=== PATIENT | male | born 1945 | race Caucasian/White ===

== ENCOUNTER 2019-02-02 12:55 | Inpatient (IN) ==
--- NOTE | 2019-02-02 13:11 | Emergency Department Note ---
Disposition Clinical Impression: Acute exacerbation of chronic obstructive airways disease, Hypoxia Aspiration pneumonia Qualifiers: Aspiration pneumonia type: unspecified Laterality: bilateral Lung location: lower lobe of lung Qualified Code(s): J69.0 - Pneumonitis due to inhalation of food and vomit Disposition: Admitted As Inpatient Condition: Fair Referrals: NONE,PCP [Primary Care Provider] - Forms: ED Satisfaction Letter Time of Disposition: 17:35 SOB HPI - General Chief Complaint: ED Shortness of Breath/Dyspnea Stated Complaint: SOB Time Seen by Provider: 02/02/19 13:00 Source: patient, EMS Mode of arrival: EMS Limitations: no limitations Nursing Notes Reviewed: Yes Vital Signs Reviewed: Yes - History of Present Illness Patient presents to the ED via EMS with complaint of shortness of breath. He states it started yesterday. He reports a slight cough that is productive of white phlegm. He denies any chest pain. No nasal congestion, rhinorrhea, sneezing or sore throat. No leg swelling. No PND or orthopnea. No abdominal pain, nausea, vomiting, diarrhea or constipation. No fever or chills. He was given a DuoNeb by EMS which she states helped somewhat. He has a history of COPD but states he is not on any type of inhalers. History is also notable for tongue cancer for which she has had a radical neck dissection and now has a PEG tube and takes nothing by mouth. He has high cholesterol and hypothyroidism but no history of CHF or CAD. He is an ex-smoker who quit 25 years ago after [facility] for approximately 20 years. - Related Data Home Medications Medication Instructions Recorded Confirmed Atenolol [Tenormin] 25 mg GTUBE DAILY 03/09/18 02/02/19 Oxycodone HCl [Oxycontin] 10 mg GTUBE BID 03/09/18 02/02/19 Aspirin 81 mg GTUBE DAILY 09/30/18 02/02/19 Docusate [Colace] 100 mg GTUBE DAILY 09/30/18 02/02/19 Rosuvastatin [Crestor] 20 mg GTUBE HS 09/30/18 02/02/19 Previous Rx's Medication Instructions Recorded Levothyroxine [Synthroid] 125 mcg GTUBE DAILY@0630 #30 tablet 10/02/18 Phenytoin Oral Susp [Dilantin Susp] 100 mg GTUBE Q8H #90 udc 10/02/18 Allergies Allergy/AdvReac Type Severity Reaction Status Date / Time No Known Allergies Allergy Verified 06/28/18 12:46 Constitutional: Denies: fever, chills, weakness, weight change Eyes: Denies: eye pain, eye discharge, vision change ENT ED: Denies: ear pain, throat pain, dental pain, hearing loss, epistaxis, congestion, dysphagia Cardiovascular: Denies: chest pain, palpitations, dyspnea on exertion, edema, s yncope Respiratory: Reports: as per HPI, cough, dyspnea, sputum production. Denies: wheezes, hemoptysis, stridor Gastrointestinal: Denies: abdominal pain, nausea, vomiting, diarrhea, constipation, hematemesis, melena, hematochezia Genitourinary: Denies: urgency, dysuria, frequency, hematuria Musculoskeletal: Denies: back pain, neck pain, arthralgia, myalgia Integumentary: Denies: rash, abrasion, lesions Neurological: Denies: headache, weakness, numbness, paresthesias, confusion, abnormal gait, vertigo Psychiatric: Denies: anxiety, depression, suicidal thoughts, homicidal thoughts, auditory hallucinations, visual hallucinations Endocrine: Denies: fatigue Hematological/Lymphatic: Denies: easy bleeding, easy bruising Allergic/Immunologic: Denies: facial swelling, urticaria Past Medical History - Past Medical History Medical history: Reports: cancer, COPD, CVA, hyperlipidemia, hypertension, seizures, thyroid disease, other Surgical history: Reports: appendectomy, cancer surgery, herniorrhaphy, tracheostomy Psychiatric history: Reports: no psych history - Social History Smoking Status: Former smoker Smokeless Tobacco Status: No Alcohol use: Reports: none Drug use: Reports: marijuana Physical Exam - General Limitations: no limitations General appearance: alert, in no apparent distress, other (thin, frail) - Head Head exam: atraumatic, normocephalic, normal inspection - Eye Eye exam: Present: normal appearance, PERRL, EOMI - ENT ENT exam: normal exam, normal oropharynx, mucous membranes moist - Neck Neck exam: Present: full ROM, trachea midline - Chest Chest inspection: Present: normal inspection, symmetric chest wall rise - Expanded Respiratory Exam Location: rhonchi: Left, Right, Upper, Lower (scattered) - Cardiovascular Cardiovascular exam: Present: regular rate, normal rhythm, normal heart sounds - Abdominal Exam Abdominal exam: Present: soft, Non-Tender, other (PEG LUQ, site clean and dry). Absent: tenderness, distention, guarding, rebound, rigidity - Extremities Exam Extremities exam: Present: normal inspection, full ROM. Absent: tenderness, pedal edema - Neurological Exam Neurological exam: Present: alert, oriented X3 - Psychiatric Psychiatric exam: Present: normal affect, normal mood - Skin Skin exam: Present: warm, dry, intact, normal color Course Course Narrative: His presents to the ED with 2 days of shortness of breath as well as a slight cough with white phlegm. No other associated cardiac or respiratory symptoms. On arrival he is afebrile, hematuria stable and nontoxic in appearance with oxygen saturations of 93-96% on room air. He has some scattered rhonchi on exam. Will obtain chest x-ray and lab work to evaluate further for pneumonia or less likely cardiovascular causes for his breathing which I feel is more likely a simple COPD exacerbation. - Reevaluation(s) Reevaluation #1: Chest x-ray shows only evidence of COPD and surgical changes. No pulmonary edema or pneumonia. We will give a second DuoNeb and a dose of steroids. Laboratory studies are still pending. Time: 13:40 Reevaluation #2: Laboratory studies show no leukocytosis. Troponin and BNP are normal. D-dimer is elevated at 768. Upon reviewing chart and talking with the patient he has had an elevated d-dimer of over 3000 in the past during hospitalization for aspiration pneumonia and CT scan was performed that showed the possibility of a nonocclusive thrombus. tells me [facility] since then his had a repeat CT scan of his chest and abdomen in late December. They have not heard anything from the [facility] on these results. While it is presumed it did not show a PE at they would have been notified these records are not available and patient now has new symptoms of worsening shortness of breath. His oxygen saturations also did drop into the 80s on room air after his breathing treatments which was surprising given his lung sounds and initial saturations in the 90s on arrival, although that may simply been an improvement due to the nebulizer treatment he received enroute. He is now doing well on just 2 L of oxygen and is feeling better but given his hypoxia he would need admission and further treatment of his COPD exacerbation at a minimum. Discussed with patient the need to repeat a CTA to rule out the possibility of a PE and he is in agreement. Patient also expressed a desire to stay at this facility if possible for hospitalization. Time: 15:34 Reevaluation #3: CT did not show any evidence of PE but did show some filling defects in the lower lobes concerning for aspiration with possibility of underlying pneumonia. Patient has had aspiration pneumonia several times in the past although he curre ntly takes nothing by mouth. Discussed results with patient and the need for antibiotics. Patient is in agreement. Will draw blood cultures and also check a lactate. Have contacted the hospitalist regarding admission for treatment of both the COPD and the potential aspiration pneumonia. Waiting callback at this time. Time: 16:37 Additional Reevaluation(s): 1744 - I spoke to the hospitalist on-call, Dr. Chan, who has agreed to accept the patient. Patient and family have been updated. Vital Signs Temperature 97.5 F L 02/02/19 12:58 Pulse Rate 92 02/02/19 12:58 Respiratory Rate 16 02/02/19 12:58 Blood Pressure 147/84 02/02/19 12:58 O2 Sat by Pulse Oximetry 95 02/02/19 12:58 Temperature 97.5 F L 02/02/19 12:58 Pulse Rate 92 02/02/19 14:48 Respiratory Rate 16 02/02/19 14:48 Blood Pressure 122/65 02/02/19 14:48 O2 Sat by Pulse Oximetry 98 02/02/19 14:48 Oxygen Delivery Oxygen Delivery Nasal Cannula Shortness of Breath/Dyspnea - Differential Diagnosis Likely: acute exacerbation of chronic obstructive airways disease, pneumonia. Unlikely: congestive heart failure, pulmonary embolism - Medical Records Medical records reviewed: Yes I reviewed the patient's medical records. - Lab Data Lab results reviewed: Yes I reviewed the patient's lab results. Result diagrams: 02/02/19 13:28 02/02/19 13:28 Lab Results 02/02/19 02/02/19 02/02/19 Range/Units 13:28 13:28 13:28 WBC 9.1 (4.3-11.1) K/mcL RBC 3.50 L (4.19-5.50) M/mcL Hgb 11.0 L (12.9-16.9) g/dL Hct 33.8 L (37.5-50.1) % MCV 96.6 (83.0-100.0) fL MCH 31.4 (28.0-33.3) pg MCHC 32.5 (31.6-35.5) g/dL RDW 14.7 H (11.5-14.5) % Plt Count 249 (140-400) K/mcL MPV 11.1 (9.4-12.4) fL Immature Gran % 0.3 (0-4) % Seg Neutrophils % 77.7 % Lymphocytes % 7.3 % Monocytes % 11.9 % Eosinophils % 2.4 % Basophils % 0.4 % Neutrophils # 7.0 (1.6-8.9) K/mcL Lymphocytes # 0.7 (0.6-4.6) K/mcL Monocytes # 1.1 (0.0-1.3) K/mcL Eosinophils # 0.2 (0.0-0.6) K/mcL Basophils # 0.0 (0.0-0.2) K/mcL D-Dimer (0-500) ng/mLFEU Sodium 132 L (136-145) mEq/L Potassium 3.9 (3.5-5.1) mEq/L Chloride 99 (98-107) mEq/L Carbon Dioxide 26 (23-29) mEq/L BUN 27 H (8-23) mg/dL Creatinine 0.88 (0.70-1.30) mg/dL Est GFR ( Amer) > 60 (> 60) Est GFR (Non-Af Amer) > 60 (> 60) BUN/Creatinine Ratio 31 H (6-26) Glucose 111 H (70-105) mg/dL Calculated Osmolality 280 (280-300) Lactic Acid (0.5-2.2) mmol/L Calcium 9.1 (8.6-10.3) mg/dL Troponin I <= 0.04 (0-0.04) ng/mL B-Natriuretic Peptide 71 (0-100) pg/mL 02/02/19 02/02/19 Range/Units 14:25 17:07 WBC (4.3-11.1) K/mcL RBC (4.19-5.50) M/mcL Hgb (12.9-16.9) g/dL Hct (37.5-50.1) % MCV (83.0-100.0) fL MCH (28.0-33.3) pg MCHC (31.6-35.5) g/dL RDW (11.5-14.5) % Plt Count (140-400) K/mcL MPV (9.4-12.4) fL Immature Gran % (0-4) % Seg Neutrophils % % Lymphocytes % % Monocytes % % Eosinophils % % Basophils % % Neutrophils # (1.6-8.9) K/mcL Lymphocytes # (0.6-4.6) K/mcL Monocytes # (0.0-1.3) K/mcL Eosinophils # (0.0-0.6) K/mcL Basophils # (0.0-0.2) K/mcL D-Dimer 768 H (0-500) ng/mLFEU Sodium (136-145) mEq/L Potassium (3.5-5.1) mEq/L Chloride (98-107) mEq/L Carbon Dioxide (23-29) mEq/L BUN (8-23) mg/dL Creatinine (0.70-1.30) mg/dL Est GFR ( Amer) (> 60) Est GFR (Non-Af Amer) (> 60) BUN/Creatinine Ratio (6-26) Glucose (70-105) mg/dL Calculated Osmolality (280-300) Lactic Acid 1.7 (0.5-2.2) mmol/L Calcium (8.6-10.3) mg/dL Troponin I (0-0.04) ng/mL B-Natriuretic Peptide (0-100) pg/mL - Radiology Data Radiology results reviewed: Yes I reviewed the patient's radiology results. ITS Impressions Chest X-Ray 02/02/19 13:11 IMPRESSION: No evidence for acute cardiopulmonary process. COPD. D/ 02/02/2019 13:27:00 Javier Toscano MD / qamar Interpreting Provider: Javier Toscano MD ITS Impressions Chest X-Ray 02/02/19 13:11 IMPRESSION: No evidence for acute cardiopulmonary process. COPD. D/ 02/02/2019 13:27:00 Javier Toscano MD / qamar Interpreting Provider: Javier Toscano MD Chest CTA 02/02/19 15:34 IMPRESSION: No evidence of pulmonary embolism. Filling defects within the left lower lobe bronchi and central airways consistent with aspiration. Bilateral lower lobe airspace opacities, some of which may represent scarring/atelectasis although likely also underlying pneumonia. Centrilobular emphysema. D/ / Polo Emery / Polo Emery Interpreting Provider: Polo Emery - EKG Data EKG attestation: Yes I reviewed and interpreted this EKG. EKG shows normal: Reports: sinus rhythm Rhythm: Reports: NSR Duck/QRS: Reports: normal Interpretation: Reports: no acute changes
[2019-02-02 13:35] LABS: Basophils % 0.4 %; Eosinophils # 0.2 K/mcL (0.0-0.6); Eosinophils % 2.4 %; Hematocrit 33.8 % (37.5-50.1); Immature Granulocytes % 0.3 % (0-4); Lymphocytes # 0.7 K/mcL (0.6-4.6); Lymphocytes % 7.3 %; Mean Corpuscular HGB Conc 32.5 g/dL (31.6-35.5); Mean Corpuscular Hemoglobin 31.4 pg (28.0-33.3); Mean Corpuscular Volume 96.6 fL (83.0-100.0); Mean Platelet Volume 11.1 fL (9.4-12.4); Monocytes # 1.1 K/mcL (0.0-1.3); Monocytes % 11.9 %; Platelet Count 249 K/mcL (140-400); Red Cell Distribution Width 14.7 % (11.5-14.5); Segmented Neutrophils % 77.7 %; White Blood Count 9.1 K/mcL (4.3-11.1)
[2019-02-02] MEDS ORDERED: methylPREDNISolone 125 MG/2 ML VIAL IM STA (13:39)
[2019-02-02] MEDS ORDERED: Ipratropium/Albuterol Neb 3 ML IH ONE (13:39)
[2019-02-02 14:14] LABS: Troponin I <= 0.04 ng/mL (0-0.04)
[2019-02-02 14:26] LABS: BUN/Creatinine Ratio 31 (6-26); Blood Urea Nitrogen 27 mg/dL (8-23); Calcium 9.1 mg/dL (8.6-10.3); Carbon Dioxide 26 mEq/L (23-29); Chloride 99 mEq/L (98-107); Glucose 111 mg/dL (70-105); Osmolality,Calculated 280 (280-300); Potassium 3.9 mEq/L (3.5-5.1); Sodium 132 mEq/L (136-145); eGFR For African Americans > 60 (> 60); eGFR For Non-African Americans > 60 (> 60)
--- NOTE | 2019-02-02 14:29 | Electrocardiograph Report ---
[place] [id number] Test Date: 2019-02-02 Pat Name: Chidi Hernandez Department: [facility] Room: Gender: M [employer]: : 1945 Requested By: Romelia Reed Order Number: [id number] Reading MD: Michael Bettencourt Measurements Intervals [place] Rate: 92 P: 77 MI: 153 QRS: 73 QRSD: 85 T: 65 QT: 355 QTc: 440 Interpretive Statements Sinus rhythm Right atrial enlargement Electronically Signed On 02-02-2019 14:27:25 EDT by Michael Bettencourt
[2019-02-02] MEDS ORDERED: Isovue-370 500 ML BOTTLE IVP ONE (15:34)
[2019-02-02] MEDS ORDERED: Piperacillin/Tazobactam 4.5 GM in 0.9 % Sodium Chloride Mini Bag 100 ML IVPB ONE (16:29)
[2019-02-02] MEDS ORDERED: Naloxone 0.4 MG/ML INJ IVP PRN ×2 (17:29→18:43)
[2019-02-02] MEDS ORDERED: Phenytoin Oral Susp 100 MG/4 ML UDC GTUBE SCH (17:45)
[2019-02-02] MEDS ORDERED: *HR* OxyCODONE ER (12 HR) 10 MG TABLET PO SCH (21:00)
[2019-02-02] MEDS: *HR* OxyCODONE Immed Rel 5 MG TABLET GTUBE SCH (21:22)
[2019-02-02] MEDS ORDERED: Ipratropium/Albuterol Neb 3 ML IH PRN (21:46)
[2019-02-02] MEDS: Ipratropium/Albuterol Neb 3 ML IH SCH (22:52)
[2019-02-02] MEDS: Phenytoin Oral Susp 100 MG/4 ML UDC PO SCH (23:39)
[2019-02-03] MEDS: Ipratropium/Albuterol Neb 3 ML IH SCH ×3 (03:55→16:05)
[2019-02-03] MEDS ORDERED: predniSONE 20 MG TABLET PO SCH (09:00)
[2019-02-03] MEDS ORDERED: Aspirin 81 MG TAB.CHEW GTUBE SCH ×2 (09:00)
[2019-02-03] MEDS ORDERED: Docusate Oral Soln 100 MG/10 ML UDC GTUBE SCH ×2 (09:00)
[2019-02-03] MEDS ORDERED: Piperacillin/Tazobactam 3.375 GM in 0.9 % Sodium Chloride Mini Bag 100 ML IVPB SCH (10:00)
[2019-02-03] MEDS: *HR* OxyCODONE Immed Rel 5 MG TABLET GTUBE SCH (10:57)
[2019-02-03] MEDS: Phenytoin Oral Susp 100 MG/4 ML UDC PO SCH ×2 (10:57→16:10)
--- NOTE | 2019-02-03 14:45 | Internal Med History&Physical ---
Date of Encounter: 02/03/19 Time of Encounter: 14:43 Assessment and Plan (1) Aspiration pneumonia Current visit: Yes Status: Acute Patient presented to emergency department with complaints of shortness of breath. Patient has a history of tongue CA with a radical neck and is to remain nothing by mouth with 100% of his nutritional intake through gastrostomy tube. Patient has a history of aspiration pneumonia. Patient was sent for a CT of the chest to rule out a PE and was found to have lower left lobe pneumonia. Patient has been admitted to the nursing unit for further treatment of antibiotics and for cortical steroid therapy due to exacerbation of his COPD. Qualifiers: Aspiration pneumonia type: unspecified Lung location: lower lobe of lung Qualified Code(s): J69.0 - Pneumonitis due to inhalation of food and vomit (2) Tongue cancer Current visit: No Status: Resolved Patient with a history of tongue CA and a radical neck. Patient is to remain nothing by mouth and currently receives 100% of his nutritional intake through a gastrostomy tube. Patient has had poor compliance with his nothing by mouth status with this being the second admission he has had for aspiration pneumonia. We will continue to maintain nothing by mouth status and will restart his tube feedings. (3) Seizure Current visit: No Status: Chronic Patient with a history of seizures. Currently no neurological deficits or seizure activity noted during exam. We will continue on current AED medications. (4) Acute exacerbation of chronic obstructive airways disease Current visit: Yes Status: Acute Patient presented with complaints of shortness of breath. Patient was diagnosed with lower left lobe pneumonia. Patient continues to have an exophoria wheezes heard to the left upper castillo. We will continue patient on current cortical steroids and Zosyn. We will continue with home medications to include his bronchodilators when necessary. Internal Medicine - H&P: HPI Chief complaint: SOB Admitted From: Home Plans for Post Hospital Care: Home History of present illness: Mr. Hernandez is a 73 year old male , who presented to the emergency department with complaints of shortness of breath. Has a history of tongue CA and a radical neck and is to remain nothing by mouth with his nutritional intake being in the 100% through a gastrostomy tube. Patient has had a recent admission for aspiration pneumonia. While in the emergency department patient had a CT scan to evaluate for a PE which showed possible lower left lobe pneumonia which would coincide with aspiration pneumonia. Her to our facility for continued antibiotics for his pneumonia. Patient also noted to have expiratory wheezes and a long history of tobacco abuse and COPD. He was continued on cortical steroids. This morning patient appears relaxed and currently denies any dyspnea or discomforts. Patient denies any productive cough. Patient is requesting discharge to home. Past Med Surg Social Fam HX - Past Medical History Medical history: cancer, COPD, CVA, hyperlipidemia, hypertension, seizures, thyroid disease, other Additional medical history: CHRONIC BACK PAIN Psychiatric history: no psych history - Past Surgical History Surgical History: appendectomy Additional surgical history: RADICAL NECK DISECTION, TONGUE SURG, G-TUBE - Social History Smoking Status: Former smoker Smokeless Tobacco Status: No Alcohol use: none Drug use: none - Family History Grandfather Living Status: Internal Medicine - H&P: Meds Atenolol [Tenormin] 25 mg GTUBE DAILY 03/09/18 [History] Oxycodone HCl [Oxycontin] 10 mg GTUBE BID 03/09/18 [History] Aspirin 81 mg GTUBE DAILY 09/30/18 [History] Docusate [Colace] 100 mg GTUBE DAILY 09/30/18 [History] Rosuvastatin [Crestor] 20 mg GTUBE HS 09/30/18 [History] Levothyroxine [Synthroid] 125 mcg GTUBE DAILY@0630 #30 tablet 10/02/18 [Rx] Phenytoin Oral Susp [Dilantin Susp] 100 mg GTUBE Q8H #90 udc 10/02/18 [Rx] Allergy/AdvReac Type Severity Reaction Status Date / Time No Known Allergies Allergy Verified 06/28/18 12:46 All Systems PM: A 10-system review of systems was performed and is negative for pertinent findings except as documented above in the HPI. - Constitutional Constitutional: as per HPI, no chills, no fever(s), no night sweats - EENT Eyes: as per HPI, no change in vision, no discharge, no pain, no photophobia Ears: as per HPI, no ear discharge, no ear pain, no tinnitus Nose, mouth and throat: as per HPI, no dysphagia, no nasal discharge, no neck pain, no sore throat - Breasts Breasts: as per HPI - Cardiovascular Cardiovascular ROS IM: as per HPI, no chest pain, no diaphoresis, no dyspnea, no lightheadedness, no palpitations, no syncope - Respiratory Respiratory: no cough, no dyspnea, no wheezing, no excessive phlegm production - Gastrointestinal Gastrointestinal: no abdominal pain, no diarrhea, no hematemesis, no hematochezia, no melena, no nausea, no vomiting - Musculoskeletal Musculoskeletal ROS IM: no numbness, no tingling - Integumentary Integumentary IM: no rash, no unusual bruising - Neurological Neurological ROS: no confusion, no convulsions, no focal weakness, no numbness, no tingling, no tremor(s) - Hematologic/Lymphatic Hematologic/Lymphatic: no easy bruising - Constitutional Vitals: Temp Pulse Resp BP Pulse Ox 97.3 F L 77 17 103/61 95 02/03/19 07:45 02/03/19 11:00 02/03/19 11:00 02/03/19 11:00 02/03/19 11:00 General appearance: Present: A&O X 3, no acute distress - Head Head exam: Present: atraumatic, normocephalic - Eye Eye exam: Present: PERRL, conjuntiva pink, sclera anicteric Pupils: Present: PERRL - Neck Neck exam general surgery: Present: supple, trachea midline. Absent: lymphadenopathy - Respiratory Respiratory exam: Present: decreased breath sounds, CTAB, wheezes. Absent: accessory muscle use, rales, rhonchi Additional comments: Patient will clear lung castillo to the upper castillo with diminished breath sounds to lower half. Noted slight expiratory wheeze heard mostly to left upper lung. Respiratory effort appears relaxed. Denies dyspnea. No productive cough. - Cardiovascular Cardiovascular exam: Present: RRR, +S1, +S2. Absent: diastolic murmur, gallop, rubs, systolic murmur - GI/Abdominal GI/Abdominal exam: Present: normal bowel sounds, soft, no peritoneal signs. Absent: distended, tenderness - Extremities Exam Extremities exam: Present: warm, radial pulses palpable and symmetrical. Absent: calf tenderness, cyanotic, pedal edema - Neurological Exam Neurological exam: Present: CN II-XII intact, oriented X3, no focal deficits. Absent: pronater drift, facial droop, speech deficit - Skin Skin exam: Present: dry, intact Internal Med - H&P Results - Labs CBC & Chem 7: 02/02/19 13:28 02/02/19 13:28 - Impressions ITS Impressions Chest X-Ray 02/02/19 13:11 IMPRESSION: No evidence for acute cardiopulmonary process. COPD. D/ / 02/02/2019 13:27:00 Javier Toscano MD / qamar Interpreting Provider: Javier Toscano MD Chest CTA 02/02/19 15:34 IMPRESSION: No evidence of pulmonary embolism. Filling defects within the left lower lobe bronchi and central airways consistent with aspiration. Bilateral lower lobe airspace opacities, some of which may represent scarring/atelectasis although likely also underlying pneumonia. Centrilobular emphysema. D/ / Polo Emery / Polo Emery Interpreting Provider: Polo Emery - VTE Reasons for not Prescribing Prophylaxis: Treatment not Indicated - Low risk for VTE Documentation of Mechanical Device: Graduated compression elastic hosiery
--- NOTE | 2019-02-03 15:02 | Discharge Summary ---
Orders not resulted at time of discharge: Pending orders 02/02/19 17:07 Culture,Blood [] Stat Date of Encounter: 02/03/19 Time of Encounter: 14:57 - Discharge Diagnosis (1) Aspiration pneumonia Priority: Primary Status: Acute Comments: Patient was diagnosed with aspiration pneumonia from a CAT scan when he presented to emergency department with complaints of shortness of breath. Patient was started on Zosyn during his admission and will be discharged on Augmentin to be given through his gastrostomy tube. Patient denies any shortness of breath today or productive cough. Patient is to continue follow-up with his PCP after discharge. Qualifiers: Aspiration pneumonia type: unspecified Lung location: lower lobe of lung Qualified Code(s): J69.0 - Pneumonitis due to inhalation of food and vomit (2) Tongue cancer Priority: Secondary Status: Chronic Comments: Patient has a history of tongue CA with a radical neck. Patient is to be nothing by mouth with 100% of his nutrition to be received through his ga strostomy tube. Patient's been noncompliant with his nothing by mouth status with dyspnea and his second admission for aspiration pneumonia. Patient is being discharged home with a prescription for Augmentin for the next 10 days. Patient is also being discharged home (3) Seizure Priority: Secondary Status: Chronic Comments: Patient shows no neurological changes on exam during his stay. Patient is continue with ADD medications after discharge. (4) Acute exacerbation of chronic obstructive airways disease Priority: Secondary Status: Acute Comments: No acute issues during stay of facility. Patient continues on cortical steroids and bronchodilators and has responded well. Patient continues to have slight exophoria wheezes, but denies any shortness of breath or productive cough. Patient will continue follow-up with PCP after discharge. Patient being discharged with Augmentin due to his left lower lobe pneumonia Hospital course: Mr. Hernandez is a 73 year old male, who was admitted at this facility after presenting emergency department with complaints of shortness of breath. During patient's workup it was determined that he had lower left lobe pneumonia suspi cious for aspiration pneumonia. Patient has had a recent admission to hospital for aspiration pneumonia and has been noncompliant with his nothing by mouth status. Patient is been nothing by mouth due to a history of tongue CA and a radical neck and received 100% of his nutritional intake through his gastrostomy tube. The to the floor overnight and received IV antibiotics and cortical steroids. Patient has a long history of tobacco abuse and COPD and presented with expiratory wheezes which continue this morning, but have greatly reduced. Patient currently denies any dyspnea or productive cough. Has been afebrile. Patient was treated with Zosyn and will be discharged with a prescription of Augmentin that he should take over the next 10 days through his gastrostomy tube. Patient is also being discharged with a prescription also for a prednisone burst of 40 mg for 5 days. Patient is to follow-up with his PCP for further evaluation and management Discharge discussed with: patient Time spent discussing smoking cessation with patient: 3 to 10 minutes - Time Spent with Patient Total time spent providing and/or coordinating discharge services: Time spent: Less than 30 minutes - Discharge Medications Prescriptions: No Action Oxycodone HCl [Oxycontin] 10 mg GTUBE BID Rosuvastatin [Crestor] 20 mg GTUBE HS Docusate [Colace] 100 mg GTUBE DAILY Aspirin 81 mg GTUBE DAILY Levothyroxine [Synthroid] 125 mcg GTUBE DAILY@0630 #30 tablet Phenytoin Oral Susp [Dilantin Susp] 100 mg GTUBE Q8H #90 udc Atenolol [Tenormin] 25 mg GTUBE DAILY Home Medications: Atenolol [Tenormin] 25 mg GTUBE DAILY 03/09/18 [History] Oxycodone HCl [Oxycontin] 10 mg GTUBE BID 03/09/18 [History] Aspirin 81 mg GTUBE DAILY 09/30/18 [History] Docusate [Colace] 100 mg GTUBE DAILY 09/30/18 [History] Rosuvastatin [Crestor] 20 mg GTUBE HS 09/30/18 [History] Levothyroxine [Synthroid] 125 mcg GTUBE DAILY@0630 #30 tablet 10/02/18 [Rx] Phenytoin Oral Susp [Dilantin Susp] 100 mg GTUBE Q8H #90 udc 10/02/18 [Rx] Allergies/Adverse Reactions: Allergy/AdvReac Type Severity Reaction Status Date / Time No Known Allergies Allergy Verified 06/28/18 12:46 Date of admission: 02/02/19 18:28 Primary care physician: PCP NONE Consults: 02/02/19 18:52 Consult to S[employer] Maker [CONS] Routine Reason for SW Consult: discharge planning 06/04/19 23:11 Consult to Nutrition [CONS] Routine Comment: Consulting Provider: NUTRITION Reason for Dietary Consult: Tube Feed Start & Manage Other:: (Manage tube feed) Discharging clinician: Rosy Chan - Constitutional Vitals: Temp Pulse Resp BP Pulse Ox 97.3 F L 77 17 103/61 95 02/03/19 07:45 02/03/19 11:00 02/03/19 11:00 02/03/19 11:00 02/03/19 11:00 General appearance: Present: A&O X 3, no acute distress - Head Head exam: Present: atraumatic, normocephalic - Eye Eye exam: Present: PERRL, conjuntiva pink, sclera anicteric Pupils: Present: PERRL - Neck Neck exam general surgery: Present: supple, trachea midline. Absent: lymphadenopathy - Respiratory Respiratory exam: Present: decreased breath sounds, CTAB, wheezes. Absent: accessory muscle use, rales, rhonchi Additional comments: Patient's lungs were clear to upper castillo with diminished bases. Patient continues to have a slight expiratory wheeze. No productive cough noted. - Cardiovascular Cardiovascular exam: Present: RRR, +S1, +S2. Absent: diastolic murmur, gallop, rubs, systolic murmur - GI/Abdominal GI/Abdominal exam: Present: normal bowel sounds, soft, no peritoneal signs. Absent: distended, tenderness - Extremities Exam Extremities exam: Present: warm, radial pulses palpable and symmetrical. Absent: calf tenderness, cyanotic, pedal edema - Neurological Exam Neurological exam: Present: CN II-XII intact, oriented X3, no focal deficits. Absent: pronater drift, facial droop, speech deficit - Skin Skin exam: Present: dry, intact - Patient Status Disposition: Home, Self-Care Condition: Good Functional capacity at discharge: independent ambulation Overall status at discharge: patient is progressing back to baseline - Discharge Instructions Follow Up With: NONE,PCP [Primary Care Provider] - - Diet and Activity Activity: increase activity as tolerated Diet: low fat, low cholesterol, low salt diet - VTE Reasons for not Prescribing Prophylaxis: Treatment not Indicated - Low risk for VTE Documentation of Mechanical Device: Graduated compression elastic hosiery
[2019-02-03 16:30] VITALS: BP 159/80
== END 2019-02-03 19:37 | disposition home or self-care (01) | DRG 178 ==
LOC: EMEROOGRE 12:55 → INPGRE 18:28
PROVIDERS: ADMIT Internal Medicine; ATTEND Internal Medicine